=== PATIENT | female | born 1975 | race American Indian/Alaskan Native ===

== ENCOUNTER 2017-04-10 07:46 | Emergency (ER) | payer OTHER ==
--- NOTE | 2017-04-10 08:28 | XRay Report ---
AP CHEST: HISTORY: Short of breath AP view of the chest demonstrates a normal mediastinal and cardiac contour with clear lungs and normal bony and soft tissue structures. IMPRESSION: Unremarkable AP chest.
[2017-04-10 08:44] LABS: Hemoglobin 12.9 gm/dl (10.1-14.3); Mean Corpuscular HGB Conc 34 % (30-34); Mean Corpuscular Hemoglobin 28 pg (28-32); Mean Corpuscular Volume 84 fl (79-97); Platelet Count 210 K/mm3 (140-440); Red Blood Count 4.53 M/mm3 (3.65-5.03); Red Cell Distribution Width 12.5 % (13.2-15.2)
[2017-04-10 08:49] LABS: BUN/Creatinine Ratio 15; Blood Urea Nitrogen 12 mg/dL (7-17); Calcium 8.9 mg/dL (8.4-10.2); Hemolysis Index 15
[2017-04-10] MEDS ORDERED: ATROVENT IH ONE (08:59)
[2017-04-10] MEDS ORDERED: PROVENTIL IH ONE (08:59)
[2017-04-10] MEDS ORDERED: NACL 0.9% 1000 ML 1,000 ML IV ONE (09:22)
[2017-04-10 09:52] LABS: Band Neutrophils # (Manual) 0.7 K/mm3; Basophils % (Manual) 0 % (0.0-1.8); Eosinophils % (Manual) 0 % (0.0-4.3); Total Cells Counted 100
[2017-04-10 09:53] LABS: RBC Morphology Normal
--- NOTE | 2017-04-10 12:25 | Emergency Department Report ---
ED Shortness of Breath HPI - General Chief Complaint: Dyspnea/Respdistress Stated Complaint: HAYLEY/ Time Seen by Provider: 04/10/17 08:58 Source: patient, EMS Mode of arrival: Stretcher Limitations: No Limitations - History of Present Illness Initial Comments: Patient is a 41-year-old female with a history of asthma. Patient states her asthma has worsened over the last week she's been doing multiple neb treatments at home and states that she still feels as though she is short of breath. Patient has a old prescription for steroids that she says she's taken several doses and believes that it may be . Patient denies fevers chills nausea vomiting diarrhea or body aches or throat at this time. MD Complaint: shortness of breath, cough, "asthma attack" -: Gradual, week(s) Time: 01:00 Severity: moderate Consistency: constant Improves With: oxygen Known History Of: asthma Context: recent URI - Related Data Previous Rx's Medication Instructions Recorded Last Taken Type Benzonatate [Tessalon Perles] 100 mg PO Q8HR 3 Days capsule 04/10/17 Unknown Rx Doxycycline [Vibramycin CAP] 100 mg PO Q12HR #14 capsule 04/10/17 Unknown Rx methylPREDNISolone [Medrol Dose 4 mg PO DAILY #1 pack 04/10/17 Unknown Rx Bandar] Allergies Allergy/AdvReac Type Severity Reaction Status Date / Time No Known Allergies Allergy Unverified 04/10/17 08:05 ED Review of Systems ROS: Stated complaint: HAYLEY/ Other details as noted in HPI Comment: All other systems reviewed and negative Respiratory: cough, shortness of breath, wheezing ED Past Medical Hx - Past Medical History Previous Medical History?: Yes Hx Asthma: Yes - Surgical History Past Surgical History?: Yes Additional Surgical History: C section x2 - Social History Smoking Status: Never Smoker Substance Use Type: None - Medications Home Medications: Home Medications Medication Instructions Recorded Confirmed Last Taken Type Benzonatate [Tessalon Perles] 100 mg PO Q8HR 3 Days capsule 04/10/17 Unknown Rx Doxycycline [Vibramycin CAP] 100 mg PO Q12HR #14 capsule 04/10/17 Unknown Rx methylPREDNISolone [Medrol Dose 4 mg PO DAILY #1 pack 04/10/17 Unknown Rx Bandar] ED Physical Exam - General Limitations: No Limitations General appearance: alert, in no apparent distress - Head Head exam: Present: atraumatic, normocephalic - Eye Eye exam: Present: normal appearance - ENT ENT exam: Present: mucous membranes moist - Neck Neck exam: Present: normal inspection - Respiratory Respiratory exam: Present: normal lung sounds bilaterally, wheezes. Absent: respiratory distress, rales, rhonchi - Cardiovascular Cardiovascular Exam: Present: normal rhythm, tachycardia. Absent: systolic murmur, diastolic murmur, rubs, gallop - GI/Abdominal GI/Abdominal exam: Present: soft, normal bowel sounds - Extremities Exam Extremities exam: Present: normal inspection - Back Exam Back exam: Present: normal inspection - Neurological Exam Neurological exam: Present: alert, oriented X3 - Psychiatric Psychiatric exam: Present: normal affect, normal mood - Skin Skin exam: Present: warm, dry, intact, normal color. Absent: rash ED Course Vital Signs 04/10/17 04/10/17 04/10/17 07:49 07:55 08:00 Temperature 99 F Pulse Rate 133 H 130 H Respiratory 20 13 Rate Blood Pressure 99/64 89/56 O2 Sat by Pulse 91 95 96 Oximetry 04/10/17 04/10/17 04/10/17 08:30 09:00 09:30 Temperature Pulse Rate 132 H 130 H 129 H Respiratory 15 14 17 Rate Blood Pressure 98/54 89/54 83/56 O2 Sat by Pulse 96 94 Oximetry 04/10/17 04/10/17 04/10/17 10:00 10:30 11:00 Temperature Pulse Rate 131 H 125 H 118 H Respiratory 20 14 18 Rate Blood Pressure 94/52 97/51 96/60 O2 Sat by Pulse 98 95 96 Oximetry 04/10/17 04/10/17 04/10/17 11:30 11:51 12:00 Temperature Pulse Rate 121 H 117 H Respiratory 15 26 H 14 Rate Blood Pressure 89/52 96/51 O2 Sat by Pulse 95 96 93 Oximetry 04/10/17 12:30 Temperature Pulse Rate 111 H Respiratory 12 Rate Blood Pressure 96/68 O2 Sat by Pulse 97 Oximetry - Reevaluation(s) Reevaluation #1: 04/10/17 14:30 Patient was given a nebulizer treatment here in emergency department and wheezing was improved. Patient still complaining of shortness of breath tachycardia. Patient recently moved to [place] from [place]. CT of the chest was ordered. CT chest was read as negative for PE ED Medical Decision Making - Lab Data Result diagrams: 04/10/17 08:18 04/10/17 08:18 - Radiology Data Radiology results: report reviewed CT chest angiogram negative for pulmonary embolus. No pneumonia Critical care attestation.: If time is entered above; I have spent that time in minutes in the direct care of this critically ill patient, excluding procedure time. ED Disposition Clinical Impression: Upper respiratory infection, Asthma exacerbation Disposition: DC- TO HOME OR SELFCARE Is pt being admited?: No Does the pt Need Aspirin: No Condition: Fair Instructions: Asthma (ED) Prescriptions: Benzonatate [Tessalon Perles] 100 mg PO Q8HR 3 Days capsule Doxycycline [Vibramycin CAP] 100 mg PO Q12HR #14 capsule methylPREDNISolone [Medrol Dose Bandar] 4 mg PO DAILY #1 pack Referrals: PRIMARY CARE, [Primary Care Provider] - 3-5 Days
[2017-04-10] MEDS ORDERED: NACL ONE (13:24)
--- NOTE | 2017-04-10 14:11 | Cat Scan Report ---
CTA CHEST: HISTORY: Dyspnea, tachycardia. COMPARISON: none. TECHNIQUE: Helical CT in 1.25mm intervals following IV contrast. Pulmonary embolus protocol. Sagittal and coronal reformatted images. Rotational MIP images. FINDINGS: Contrast bolus is satisfactory. No pulmonary embolus is identified. Thyroid gland: Normal. Tracheobronchial tree: Normal. Esophagus: Normal. Heart: Normal. Pericardium: Normal. Mediastinum: Normal. Lung Hubbard: normal. Pleural Spaces: Normal. Musculoskeletal: Normal. IMPRESSION: No evidence for pulmonary embolus. Unremarkable CT chest with contrast.
[2017-04-10 15:18] VITALS: BP 102/64
== END 2017-04-10 15:19 | disposition home or self-care (01) ==
LOC: ED 07:46
DX: J06.9 Acute upper respiratory infection, unspecified (principal); J45.901 Unspecified asthma with (acute) exacerbation
CPT/HCPCS: 36415; 71045; 71275; 80048; 85007; 85025; 93005; 93010; 96360; 99284; J7030; Q9967